=== PATIENT | female | born 1960 | race Two or more races ===

== ENCOUNTER 2023-07-20 17:03 | Emergency (ER) | payer BC, OTHER ==
[~2023-07-20] VITALS: Ht 165.1 cm; Wt 72.0 kg
[2023-07-20 17:10] VITALS: BP 144/90; PULSE 76; RESP 20; TEMP 98.2; O2SAT 100
[2023-07-20] MEDS ORDERED: IBUP-2028 MT (18:07)
[2023-07-20] MEDS ORDERED: TOPUD MT (18:07)
== END 2023-07-20 18:47 | disposition home or self-care (01) ==
LOC: ER 17:03
DX: M25.572 Pain in left ankle and joints of left foot (principal); E78.00 Pure hypercholesterolemia, unspecified; I10 Essential (primary) hypertension
CPT/HCPCS: 73610; 73630; 99284; Z7610 ×2